=== PATIENT | female | born 1960 | race Caucasian/White ===

== ENCOUNTER 2016-08-01 15:42 | Inpatient (IN) | payer OTHER ==
[2016-08-01 17:23] LABS: HEMOGLOBIN 13.3 gm/dl (12.3-15.3); RED BLOOD COUNT 4.87 M/UL (4.00-5.10); WHITE BLOOD COUNT 8.9 K/UL (4.5-11.0)
[2016-08-01] MEDS ORDERED: LISINOPRIL5 MG PO (20:25)
[2016-08-01] MEDS ORDERED: KLONOPIN0.5 MG PO (20:27)
[2016-08-01] MEDS ORDERED: CARDIZEM CD360 MG PO (20:27)
[2016-08-01] MEDS ORDERED: NEURONTIN 300300 MG PO (20:40)
[2016-08-01] MEDS ORDERED: VITAMIN D50000 UNIT PO (20:40)
[2016-08-01] MEDS ORDERED: LORTAB 7.5-3251 EACH PO (20:41)
[2016-08-01] MEDS ORDERED: NASONEX SPRAY 117 GM (20:42)
[2016-08-02 05:54] LABS: HEMOGLOBIN 11.6 gm/dl (12.3-15.3)
[2016-08-02 05:55] LABS: RED BLOOD COUNT 4.35 M/UL (4.00-5.10); WHITE BLOOD COUNT 5.8 K/UL (4.5-11.0)
[2016-08-02 06:07] LABS: BUN/CREATININE RATIO 21 (0-10)
[2016-08-03 04:32] LABS: HEMOGLOBIN 10.9 gm/dl (12.3-15.3); RED BLOOD COUNT 4.08 M/UL (4.00-5.10)
[2016-08-03 04:45] LABS: BUN/CREATININE RATIO 14 (0-10)
[2016-08-04 06:29] LABS: HEMOGLOBIN 10.3 gm/dl (12.3-15.3); RED BLOOD COUNT 3.86 M/UL (4.00-5.10); WHITE BLOOD COUNT 6.9 K/UL (4.5-11.0)
[2016-08-04 06:40] LABS: BUN/CREATININE RATIO 14 (0-10)
[2016-08-05 06:22] LABS: HEMOGLOBIN 10.5 gm/dl (12.3-15.3); RED BLOOD COUNT 3.93 M/UL (4.00-5.10); WHITE BLOOD COUNT 7.8 K/UL (4.5-11.0)
[2016-08-05 06:44] LABS: BUN/CREATININE RATIO 12 (0-10)
[2016-08-06] MEDS ORDERED: LOVENOX SY30 MG/0.3 SQ (13:50)
[2016-08-06] MEDS ORDERED: SENOKOT-S TABL1 EACH PO (13:50)
[2016-08-06] MEDS ORDERED: PERCOCET 7.5-31 EACH PO (13:54)
== END 2016-08-06 14:20 | disposition home or self-care (01) | DRG 493 ==
LOC: ER1 15:42 → M/S 17:10 → ZEROF 17:10 → M/S 19:50
PROVIDERS: Internal Medicine Infectious Disease; Orthopaedic Surgery; Physician Assistant; ADMIT Family Medicine
PROC: 0KNT0ZZ Release Left Lower Leg Muscle, Open Approach (ICD-10-PCS; 2016-08-03)
PROC: 3E0V0GB Introduction of Recombinant Bone Morphogenetic Protein into Bones, Open Approach (ICD-10-PCS; 2016-08-03)
PROC: 0QSH04Z Reposition Left Tibia with Internal Fixation Device, Open Approach (ICD-10-PCS; principal; 2016-08-03 16:30)
DX: S82.142A Displaced bicondylar fracture of left tibia, initial encounter for closed fracture (principal); D62 Acute posthemorrhagic anemia; E87.2 Acidosis; S82.832A Other fracture of upper and lower end of left fibula, initial encounter for closed fracture; W17.89XA Other fall from one level to another, initial encounter; Y92.008 Other place in unspecified non-institutional (private) residence as the place of occurrence of the external cause; E11.9 Type 2 diabetes mellitus without complications; I10 Essential (primary) hypertension; G47.33 Obstructive sleep apnea (adult) (pediatric); G89.18 Other acute postprocedural pain; I89.0 Lymphedema, not elsewhere classified; G89.29 Other chronic pain; M54.9 Dorsalgia, unspecified; D64.9 Anemia, unspecified; F41.9 Anxiety disorder, unspecified; Z79.891 Long term (current) use of opiate analgesic; Z79.899 Other long term (current) drug therapy; Z90.49 Acquired absence of other specified parts of digestive tract; Z98.890 Other specified postprocedural states; Z82.49 Family history of ischemic heart disease and other diseases of the circulatory system; Z80.9 Family history of malignant neoplasm, unspecified
CPT/HCPCS: 36415; 71010; 73560; 73590; 73700; 76000; 80048; 80053; 82962; 83735; 85025; 85027; 85610; 93005; 96374; 96375; 96376; 97110; 97530; 99284; C1713; J0690; J1650; J2250; J2405; J3010; J7030; J7120; Q9962

== ENCOUNTER → 2020-06-24 | Outpatient (CLI) | payer OTHER ==
[~2020-06-24] MED LIST: ACID REDUCER20 MG PO; ADULT LOW DOSE81 MG PO; BACITRACIN ZIN1 EAC1 TP; CARDIZEM CD360 MG PO; CLONAZEPAM1 MG PO; COLACE100 MG PO; CYCLOBENZAPRINE10 MG PO; DICLOFENAC GEL TOP; DILTIAZEM 24HR240 M1 PO; DULOXETINE HCL60 MG PO; FAMOTIDINE20 MG PO; FERROUS SULFAT325 MG PO; FISH OIL 1,0001 EAC4 PO; FLONASE ALLER15.8 ML; FLUTICASONE SPRAY; FOLIC ACID 1 MG1 MG PO; FOLIC ACID1 MG PO; GLUCOPHAGE500 MG PO; HAIR, SKIN & N1 EAC2 PO; IBUPROFEN600 MG PO; KLONOPIN0.5 MG PO; KLONOPIN1 MG PO; LEVOCETIRIZINE D5 MG PO; LISINOPRIL10 MG PO; LISINOPRIL40 MG PO; LISINOPRIL5 MG PO; LODINE CAP 300300 MG PO; LORTAB 7.5-3251 EACH PO; LOVENOX SY30 MG/0.3 SQ; MILK THISTLE PO; NASONEX SPRAY 117 GM; NEURONTIN 300300 MG PO; NEURONTIN800 MG PO; NORCO 7.5-3251 EACH PO; NORFLEX 100 MG100 MG PO; OYSTER SHELL PO; PERCOCET 7.5-31 EACH PO; PROMETHAZINE HC25 M1 PO; SENOKOT-S TABL1 EACH PO; SINGULAIR10 MG PO; TIZANIDINE HCL4 MG PO; TYLENOL325 MG PO; VIT C PO; VIT D3 PO; VITAMIN B12 PO; VITAMIN C PO; VITAMIN D3 PO; VITAMIN D50000 UNIT PO; VOLTAREN EC 2525 MG PO; Voltaren Gel 1 % TOP; XYZAL5 MG PO; ZANAFLEX4 M1 PO
== END ==
LOC: MAMO 12:24
DX: R92.8 Other abnormal and inconclusive findings on diagnostic imaging of breast (principal); Z78.0 Asymptomatic menopausal state
CPT/HCPCS: 76641-RT; 77065; G0279

== ENCOUNTER → 2020-07-25 | Day surgery (SDC) | payer OTHER | END | disposition home or self-care (01) | LOC: OR 08:23 | PROVIDERS: Internal Medicine Gastroenterology | PROC: 0DB78ZX Excision of Stomach, Pylorus, Via Natural or Artificial Opening Endoscopic, Diagnostic (ICD-10-PCS; 2020-07-25) | PROC: 0DB68ZX Excision of Stomach, Via Natural or Artificial Opening Endoscopic, Diagnostic (ICD-10-PCS; principal; 2020-07-25 14:00) | DX: K74.60 Unspecified cirrhosis of liver (principal); I85.10 Secondary esophageal varices without bleeding; K76.6 Portal hypertension; K31.89 Other diseases of stomach and duodenum; K29.51 Unspecified chronic gastritis with bleeding; K75.81 Nonalcoholic steatohepatitis (NASH); K25.4 Chronic or unspecified gastric ulcer with hemorrhage; E11.9 Type 2 diabetes mellitus without complications; I10 Essential (primary) hypertension; G47.30 Sleep apnea, unspecified; K21.9 Gastro-esophageal reflux disease without esophagitis; E66.9 Obesity, unspecified; Z68.31 Body mass index [BMI] 31.0-31.9, adult; Z79.82 Long term (current) use of aspirin; Z79.84 Long term (current) use of oral hypoglycemic drugs; Z79.899 Other long term (current) drug therapy; Z88.5 Allergy status to narcotic agent | CPT/HCPCS: J2001; J2704; J7040 ==

== ENCOUNTER → 2020-09-27 | Outpatient (CLI) | payer OTHER | LOC: EXRD 09-26 08:30 | DX: K74.60 Unspecified cirrhosis of liver (principal) | CPT/HCPCS: 76705 ==

== ENCOUNTER 2021-01-23 00:52 | Emergency (ER) | payer OTHER ==
[2021-01-23 01:25] LABS: HEMOGLOBIN 12.2 gm/dl (12.3-15.3); RED BLOOD COUNT 4.14 M/UL (4.00-5.10); WHITE BLOOD COUNT 5.4 K/UL (4.5-11.0)
[2021-01-23 02:05] LABS: BUN/CREATININE RATIO 19 (0-10)
[2021-01-23] MEDS ORDERED: TESSALON PERLE100 MG PO (03:09)
[2021-01-23] MEDS ORDERED: VENTOLIN HFA 66.7 GM INH (03:09)
== END 2021-01-23 03:25 | disposition home or self-care (01) ==
LOC: ER1 00:52
PROVIDERS: Physician Assistant
DX: U07.1 COVID-19 (principal); E87.6 Hypokalemia; E11.40 Type 2 diabetes mellitus with diabetic neuropathy, unspecified; I10 Essential (primary) hypertension; Z90.49 Acquired absence of other specified parts of digestive tract
CPT/HCPCS: 71045; 80053; 82550; 82553; 83874; 83880; 84484; 85025; 93005; 99285

== ENCOUNTER 2021-01-24 16:18 | Emergency (ER) | payer OTHER ==
[~2021-01-24] VITALS: Ht 177.8 cm; Wt 97.5 kg
[~2021-01-24 16:18] MED LIST changes: +TESSALON PERLE100 MG PO; +VENTOLIN HFA 66.7 GM INH
[2021-01-24 17:06] LABS: HEMOGLOBIN 12.7 gm/dl (12.3-15.3); RED BLOOD COUNT 4.36 M/UL (4.00-5.10)
[2021-01-24 17:26] LABS: BUN/CREATININE RATIO 19 (0-10)
== END 2021-01-24 23:55 | disposition home or self-care (01) ==
LOC: ER1 16:18
PROVIDERS: Physician Assistant
DX: Z23 Encounter for immunization (principal); U07.1 COVID-19; J12.82 Pneumonia due to coronavirus disease 2019; I10 Essential (primary) hypertension; E11.9 Type 2 diabetes mellitus without complications; Z90.49 Acquired absence of other specified parts of digestive tract
CPT/HCPCS: 71045; 80053; 82550; 82553; 83874; 84484; 85025; 85379; 93005; 99285; M0243

== ENCOUNTER → 2021-03-24 | Outpatient (CLI) | payer OTHER | LOC: EXRD 08:28 | DX: K74.60 Unspecified cirrhosis of liver (principal); R09.89 Other specified symptoms and signs involving the circulatory and respiratory systems; R16.2 Hepatomegaly with splenomegaly, not elsewhere classified | CPT/HCPCS: 76700; 93925 ==

== ENCOUNTER → 2021-04-15 | Outpatient (CLI) | payer OTHER | LOC: MAMO 14:00 | DX: Z12.31 Encounter for screening mammogram for malignant neoplasm of breast (principal) | CPT/HCPCS: 77063; 77067 ==

== ENCOUNTER → 2021-09-15 | Outpatient (CLI) | payer OTHER | LOC: RAD 11:11 | DX: M25.562 Pain in left knee (principal) | CPT/HCPCS: 73564 ==

== ENCOUNTER → 2021-11-03 | Outpatient (CLI) | payer OTHER ==
[2021-11-03 13:32] LABS: BUN/CREATININE RATIO 23 (0-10)
[2021-11-04 10:15] LABS: CREATININE, URINE 157.1 mg/dL (Not Estab.)
== END ==
LOC: LAB 12:33
PROVIDERS: Family Medicine
DX: R73.01 Impaired fasting glucose (principal)
CPT/HCPCS: 36415; 80053; 80061; 82043; 82570; 83036

== ENCOUNTER → 2021-11-28 | Outpatient (CLI) | payer OTHER ==
[2021-11-28 10:40] LABS: RED BLOOD COUNT 4.7 M/UL (4.00-5.10); WHITE BLOOD COUNT 4.6 K/UL (4.5-11.0)
[2021-11-28 11:07] LABS: BUN/CREATININE RATIO 23 (0-10)
== END ==
LOC: US 08-07 10:30
PROVIDERS: Family Medicine
DX: K74.60 Unspecified cirrhosis of liver (principal); E11.9 Type 2 diabetes mellitus without complications; E53.8 Deficiency of other specified B group vitamins; E78.5 Hyperlipidemia, unspecified; D50.9 Iron deficiency anemia, unspecified
CPT/HCPCS: 36415; 76705; 80053; 80061; 82728; 82746; 83036; 83540; 83550; 84466; 85025